=== PATIENT | female | born 1995 | race Hispanic/Latino ===

== ENCOUNTER 2024-03-21 12:32 | Emergency (ER) | payer SELFPAY ==
[~2024-03-21] VITALS: Ht 160 cm; Wt 69.4 kg
[2024-03-21] MEDS: LACTATED RINGER'S 1,000 ML INJ ONE (13:23)
[2024-03-21] MEDS: FAMOTIDINE 20 MG/2 ML VIAL IV STA (13:23)
[2024-03-21] MEDS: ONDANSETRON HCL INJ 2MG/ML 2ML 2 MG/ML VIAL IV STA (13:23)
[2024-03-21] MEDS: KETOROLAC TROMETHAMINE 30 MG/ML VIAL IV STA (13:25)
[2024-03-21 14:37] VITALS: PULSE 64; RESP 14; TEMP 98.8; O2SAT 100
[2024-03-21] MEDS ORDERED: ONDANSETRON ODT4 MG PO (14:38)
[2024-03-21] MEDS ORDERED: PEPCID20 MG PO (14:38)
[2024-03-21] MEDS ORDERED: KETOROLAC TROME10 MG PO (14:38)
== END 2024-03-21 14:56 | disposition home or self-care (01) ==
LOC: FSED 12:36
DX: R10.11 Right upper quadrant pain (principal); K29.70 Gastritis, unspecified, without bleeding; R11.2 Nausea with vomiting, unspecified; R51.9 Headache, unspecified; Z11.52 Encounter for screening for COVID-19
CPT/HCPCS: 0223U; 36415; 76705; 80048; 80076; 81003; 81025; 83690; 85025; 87400; 99284; J1885; J2405; J7121